=== PATIENT | female | born 1975 | race Caucasian/White ===

== ENCOUNTER → 2017-07-29 | Outpatient (REF) | payer OTHER ==
[2017-07-29 12:03] LABS: BASO # 0.1 10^3/uL (0.0-0.2); BASO % 0.7 % (0.0-1.0); EOS # 0.1 10^3/uL (0.0-0.50); EOS % 0.7 % (0.0-3.0); HEMATOCRIT 44.7 % (36.0-47.0); HEMOGLOBIN 15.1 g/dl (12.0-15.5); IMMATURE GRANULOCYTE % 0.7 % (0-3.0); LYMPH # 2.1 10^3/uL (1.5-4.5); LYMPH % 23.5 % (24.0-44.0); MEAN CORPUSCULAR HEMOGLOBIN 30.8 pg (27.0-33.0); MEAN CORPUSCULAR HGB CONC 33.8 g/dl (32.0-36.5); MONO # 0.8 10^3/uL (0.0-0.8); MONO % 8.6 % (0.0-5.0); NEUTROPHILS # 5.9 10^3/uL (1.8-7.7); NEUTROPHILS % 65.8 % (36.0-66.0); PLATELET COUNT, AUTOMATED 239 10^3/uL (150-450); RED BLOOD COUNT 4.91 10^6/uL (4.00-5.40); RED CELL DISTRIBUTION WIDTH 12.2 % (11.5-14.5); WHITE BLOOD COUNT 8.9 10^3/uL (4.0-10.0)
[2017-07-29 12:40] LABS: C REACTIVE PROTEIN QUANTITATIV < 0.30 MG/DL (0.00-0.30)
[2017-07-29 12:40] LABS: RHEUMATOID FACTOR QUANT < 10.0 IU/ML (<15.0)
[2017-07-29 12:51] LABS: ERYTHROCYTE SEDIMENTATION RATE 14 mm/hr (0-20)
[2017-07-30 14:13] LABS: ANTINUCLEAR ANTIBODIES DIRECT Negative (Negative); Lyme Disease IgG/IgM Antibodie <0.91 ISR (0.00-0.90); Lyme Disease IgM Ab Quantitati <0.80 index (0.00-0.79)
== END ==
LOC: M LABDRAW1 10:34
DX: M25.552 Pain in left hip (principal)
CPT/HCPCS: 36415

== ENCOUNTER 2021-08-25 01:07 | Inpatient (IN) | payer MEDICAID, OTHER ==
[~2021-08-25] VITALS: Ht 160 cm; Wt 112.6 kg
[2021-08-25 01:55] LABS: HEMATOCRIT 42.3 % (36.0-47.0); HEMOGLOBIN 14.6 g/dl (12.0-15.5); MEAN CORPUSCULAR HEMOGLOBIN 33.2 pg (27.0-33.0); MEAN CORPUSCULAR HGB CONC 34.5 g/dl (32.0-36.5); MEAN CORPUSCULAR VOLUME 96.1 fl (80.0-96.0); PLATELET COUNT, AUTOMATED 214 10^3/uL (150-450); WHITE BLOOD COUNT 6.9 10^3/uL (4.0-10.0)
[2021-08-25 02:21] LABS: AMPHETAMINES LEVEL URINE NEGATIVE (NEGATIVE); BARBITURATES URINE NEGATIVE (NEGATIVE); BENZODIAZEPINES URINE NEGATIVE (NEGATIVE); CANNABINOIDS URINE NEGATIVE (NEGATIVE); COCAINE METABOLITE URINE NEGATIVE (NEGATIVE); METHADONE URINE NEGATIVE (NEGATIVE); OPIATES URINE NEGATIVE (NEGATIVE); PHENCYCLIDINE URINE NEGATIVE (NEGATIVE)
[2021-08-25 02:27] LABS: HCG, SERUM QUALITATIVE NEGATIVE (NEGATIVE)
[2021-08-25 02:38] LABS: ACETAMINOPHEN LEVEL < 2.0 UG/ML (10.0-30.0); ALBUMIN 3.8 GM/DL (3.2-5.2); ALT/SGPT 49 U/L (12-78); BILIRUBIN,DIRECT 0.2 MG/DL (0.0-0.2); BILIRUBIN,TOTAL 0.4 MG/DL (0.2-1.0); BLOOD UREA NITROGEN 5 MG/DL (7-18); CALCIUM LEVEL 8.8 MG/DL (8.5-10.1); CARBON DIOXIDE LEVEL 23 MEQ/L (21-32); CHLORIDE LEVEL 109 MEQ/L (98-107); ETHYL ALCOHOL (ETHANOL) 0.217 % (0.000-0.010); GLOMERULAR FILTRATION RATE > 60.0 (>58); GLUCOSE, FASTING 92 MG/DL (70-100); POTASSIUM SERUM 3.5 MEQ/L (3.5-5.1); SALICYLATE LEVEL 7.3 MG/DL (5.0-30.0); SODIUM LEVEL 140 MEQ/L (136-145); TOTAL PROTEIN 7.3 GM/DL (6.4-8.2)
[2021-08-25 02:49] LABS: RSV AMPLIFICATION NEGATIVE (NEGATIVE)
[2021-08-25] MEDS ORDERED: PHEN15CA6 PO (06:06)
[2021-08-25] MEDS ORDERED: LISI20TA37 PO (06:06)
[2021-08-25] MEDS ORDERED: METO1TAB7 PO (06:06)
[2021-08-25] MEDS ORDERED: LISI20TA33 PO (06:06)
[2021-08-25] MEDS ORDERED: HOME MED LIST COMPLETE! XX SCH (06:10)
[2021-08-25] MEDS ORDERED: MOM 30ML SUSPENSION UDC PO PRN ×4 (09:00→13:15)
[2021-08-25] MEDS ORDERED: ACETAMINOPHEN TAB 650MG DOSE (2X325MG) PO PRN ×4 (12:50→13:15)
[2021-08-25] MEDS ORDERED: MAALOX 30 ML SUSP *UDC PO PRN ×4 (12:50→13:15)
[2021-08-25] MEDS ORDERED: LORazepam 2 MG TAB PO PRN ×4 (12:50→13:15)
[2021-08-25] MEDS ORDERED: traZODone 50 MG TAB PO PRN ×3 (12:50→13:15)
[2021-08-25 14:05] VITALS: BP_SYST 174; BP_SYST 177; BP_DIAS 99
[2021-08-25] MEDS: MULTIVITAMINS/MINERALS THERAP 1 TAB PO SCH (16:04)
[2021-08-25] MEDS: THIAMINE 100 MG TAB PO SCH ×2 (16:04→20:14)
[2021-08-25] MEDS: FOLIC ACID 1 MG TAB PO SCH (16:04)
[2021-08-25] MEDS: NICOTINE 21MG/24HR 1 EA TRANSDERMAL TD SCH (16:04)
[2021-08-25] MEDS: CitaloPRAM (CeleXA) 10 MG TABLET PO SCH (16:42)
[2021-08-25] MEDS: lisinopriL 40MG TAB PO SCH (20:14)
[2021-08-25] MEDS: traZODone 50 MG TAB PO PRN (20:14)
[2021-08-25] MEDS: METOPROLOL SUCC (TopROL XL) 50MG **XL** TAB PO SCH (20:14)
[2021-08-25] MEDS ORDERED: THIAMINE 100 MG TAB PO SCH ×3 (21:00)
[2021-08-25 22:23] VITALS: BP 121/65
[2021-08-26 06:39] VITALS: BP 125/75
[2021-08-26 06:48] VITALS: BP 125/75
[2021-08-26] MEDS: FOLIC ACID 1 MG TAB PO SCH (07:59)
[2021-08-26] MEDS: THIAMINE 100 MG TAB PO SCH ×2 (07:59→20:51)
[2021-08-26] MEDS: CitaloPRAM (CeleXA) 10 MG TABLET PO SCH (07:59)
[2021-08-26] MEDS: MULTIVITAMINS/MINERALS THERAP 1 TAB PO SCH (07:59)
[2021-08-26] MEDS: NICOTINE 21MG/24HR 1 EA TRANSDERMAL TD SCH (08:00)
[2021-08-26] MEDS ORDERED: MULTIVITAMINS/MINERALS THERAP 1 TAB PO SCH ×3 (09:00)
[2021-08-26] MEDS ORDERED: FOLIC ACID 1 MG TAB PO SCH ×3 (09:00)
[2021-08-26 14:00] VITALS: BP 139/84
[2021-08-26] MEDS: hydrOXYzine 25 MG TAB PO PRN ×2 (15:27→20:53)
[2021-08-26 16:42] VITALS: BP 132/73
[2021-08-26 20:50] VITALS: BP 138/81
[2021-08-26] MEDS: traZODone 50 MG TAB PO PRN (20:50)
[2021-08-26] MEDS: lisinopriL 40MG TAB PO SCH (20:50)
[2021-08-26] MEDS: METOPROLOL SUCC (TopROL XL) 50MG **XL** TAB PO SCH (20:50)
[2021-08-27 06:19] VITALS: BP 95/54
[2021-08-27] MEDS: NICOTINE 21MG/24HR 1 EA TRANSDERMAL TD SCH (08:30)
[2021-08-27] MEDS: FOLIC ACID 1 MG TAB PO SCH (08:30)
[2021-08-27] MEDS: CitaloPRAM (CeleXA) 10 MG TABLET PO SCH (08:30)
[2021-08-27] MEDS: THIAMINE 100 MG TAB PO SCH (08:30)
[2021-08-27] MEDS: MULTIVITAMINS/MINERALS THERAP 1 TAB PO SCH (08:31)
[2021-08-27] MEDS ORDERED: NICO21PAT TD (10:22)
[2021-08-27] MEDS ORDERED: CELE10TA PO (10:22)
[2021-08-27] MEDS ORDERED: HYDR-3490 PO (10:22)
== END 2021-08-27 14:00 | disposition home or self-care (01) | DRG 751 ==
LOC: M ED 01:07 → M ED INP 12:47 → M ED 13:07 → M PSY 14:04
PROVIDERS: ADMIT Psychiatry & Neurology Psychiatry; ATTEND Psychiatry & Neurology Psychiatry
DX: F33.1 Major depressive disorder, recurrent, moderate (principal); F10.10 Alcohol abuse, uncomplicated; M54.9 Dorsalgia, unspecified; R45.851 Suicidal ideations; Z20.822 Contact with and (suspected) exposure to COVID-19; Z63.8 Other specified problems related to primary support group

== ENCOUNTER → 2021-12-18 | Outpatient (CLI) | payer MEDICAID, OTHER ==
[~2021-12-18] MED LIST: BUSP5TA PO; CELE10TA PO; HYDR-3490 PO; LISI20TA33 PO; LISI20TA37 PO; METO1TAB7 PO; NICO21PAT TD; PHEN15CA6 PO; VITMTA PO
== END ==
LOC: M LABSMTC 10:01
PROVIDERS: ATTEND Anesthesiology
DX: Z01.818 Encounter for other preprocedural examination (principal); Z11.52 Encounter for screening for COVID-19

== ENCOUNTER 2021-12-21 09:37 | Day surgery (SDC) | payer OTHER ==
[~2021-12-21] VITALS: Ht 160 cm; Wt 119.0 kg
[~2021-12-21 09:37] MED LIST changes: +LR 1,000 ML IV ONE
[2021-12-21] MEDS ORDERED: LR 1,000 ML IV SCH ×2 (09:50→18:20)
[2021-12-21] MEDS ORDERED: propofoL 200 MG/20 ML VIAL As Ordered ONE (12:06)
[2021-12-21] MEDS ORDERED: fentaNYL 250 MCG/5 ML INJECTION As Ordered ONE (12:06)
[2021-12-21] MEDS ORDERED: LIDOCAINE 2% 100MG/5ML SDV (FOR ANES.) As Ordered ONE (12:06)
[2021-12-21] MEDS ORDERED: METOCLOPRAMIDE INJ 10MG/2ML VIAL (J2765 PER 1) As Ordered ONE (12:06)
[2021-12-21] MEDS ORDERED: HYDROmorphone HCL 2MG/ML 1ML VIAL As Ordered ONE (12:06)
[2021-12-21] MEDS ORDERED: dexameTHASONE 4 MG/ML 1ML VIAL (J1100 PER 1MG) As Ordered ONE (12:06)
[2021-12-21] MEDS ORDERED: ONDANSETRON 4MG 2ML VIAL As Ordered ONE (12:06)
[2021-12-21] MEDS ORDERED: KETOROLAC 60MG 2ML VIAL As Ordered ONE (12:06)
[2021-12-21] MEDS ORDERED: MIDAZOLAM INJ 2MG/2ML VIAL (J2250 PER 1MG) As Ordered ONE (12:06)
[2021-12-21] MEDS ORDERED: SUGAMMADEX SODIUM 500 MG/5 ML VIAL (BRIDION) As Ordered ONE (12:06)
[2021-12-21] MEDS ORDERED: ROCURONIUM BROMIDE 50 MG/5 ML VIAL As Ordered ONE ×2 (12:06→17:21)
[2021-12-21] MEDS ORDERED: BUPIVACAINE HCL 0.25% 30ML VIAL As Ordered ONE (12:32)
[2021-12-21] MEDS ORDERED: PHENYLephrine 500MCG 5ML (100MCG/ML) SYRINGE As Ordered ONE ×2 (13:30→16:59)
[2021-12-21] MEDS ORDERED: ACETAMINOPHEN 1000MG 100ML IV BTL (OFIRMEV) (J0131 PER 10MG) As Ordered ONE (14:25)
[2021-12-21] MEDS ORDERED: fentaNYL 100 MCG/2 ML INJECTION IV PRN (18:20)
[2021-12-21] MEDS ORDERED: MEPERIDINE INJ 25 MG/ML VIAL (J2175) IV PRN (18:20)
[2021-12-21] MEDS ORDERED: METOCLOPRAMIDE INJ 10MG/2ML VIAL (J2765 PER 1) IV PRN (18:20)
[2021-12-21] MEDS ORDERED: ONDANSETRON 4MG 2ML VIAL IV PRN (18:20)
[2021-12-21] MEDS: oxyCODONE 5MG TAB PO PRN ×2 (18:40→19:08)
[2021-12-21] MEDS: HYDROMORPHONE HCL 0.5 MG/ 0.5 ML SYRINGE (J1170 PER 1) IV PRN ×2 (18:54→19:05)
[2021-12-21] MEDS ORDERED: OXYC1TAB23 PO (19:29)
[2021-12-21 20:05] VITALS: BP 145/84
== END 2021-12-21 20:09 | disposition home or self-care (01) ==
LOC: M SDC 09:37
PROVIDERS: ATTEND Surgery
DX: K43.0 Incisional hernia with obstruction, without gangrene (principal); K43.6 Other and unspecified ventral hernia with obstruction, without gangrene; K66.0 Peritoneal adhesions (postprocedural) (postinfection); I10 Essential (primary) hypertension; F32.A Depression, unspecified; F41.9 Anxiety disorder, unspecified; Z78.0 Asymptomatic menopausal state; Z86.14 Personal history of Methicillin resistant Staphylococcus aureus infection; Z79.899 Other long term (current) drug therapy
CPT/HCPCS: 49655; 88302; C1781; J0131; J1100; J1170; J1885; J2250; J2370; J2405; J2765; J3010; S2900

== ENCOUNTER → 2022-01-30 | Outpatient (CLI) | payer OTHER ==
[~2022-01-30] MED LIST changes: +BACT800T5 PO; +GASTROGRAFIN SOLUTION 30ML (Q9963) As Ordered ONE; +ISOVUE-370 76% 100ML VIAL As Ordered ONE; -LR 1,000 ML IV ONE; +OXYC1TAB23 PO
== END ==
LOC: M RAD 14:11
PROVIDERS: ATTEND Physician Assistant
DX: R93.5 Abnormal findings on diagnostic imaging of other abdominal regions, including retroperitoneum (principal); K57.30 Diverticulosis of large intestine without perforation or abscess without bleeding; K43.0 Incisional hernia with obstruction, without gangrene
CPT/HCPCS: 74178; 87070; 87077; 87186; 87205; Q9963; Q9967

== ENCOUNTER → 2022-02-04 | Outpatient (CLI) | payer OTHER ==
[~2022-02-04] MED LIST changes: -GASTROGRAFIN SOLUTION 30ML (Q9963) As Ordered ONE; -ISOVUE-370 76% 100ML VIAL As Ordered ONE; +LIDOCAINE 1% MDV 20ML VIAL As Ordered ONE
[2022-02-04 12:57] VITALS: BP 155/85
== END ==
LOC: M IRPRO 11:01
PROVIDERS: ATTEND Physician Assistant
DX: Z48.89 Encounter for other specified surgical aftercare (principal); L76.34 Postprocedural seroma of skin and subcutaneous tissue following other procedure